=== PATIENT | female | born 1990 | race Caucasian/White ===

== ENCOUNTER 2016-09-01 10:22 | Emergency (ER) | payer OTHER ==
--- NOTE | 2016-09-01 11:57 | ED NURSING NOTES ---
Clinical Report - Nurses [facility] [address] [place] [address] 09/01/2016 10:23 Patient: MARY WHITTINGTON TRIAGE Triage time 1045 AM. Chief Complaint: "FLU", FEVER, COUGH and BODY ACHES and possible H1N1 FLU EXPOSURE. Alert. No acute distress. SEPSIS SCREEN: Sepsis Screen. Negative (no infection suspected/documented). --10:51 Troy Ellison R.N. 10:45 09/01/16. BP: 127/81. HR: 95. RR: 16. O2 saturation: 100%. Temp: 98.9 F. Pain level now 01/08. --10:51 Troy Ellison R.N. Weight: 86.1 kg stated. Height/Length: 65 inches Per Patient. BMI: 31.6. --10:45 Troy Ellison R.N. Medications Antidepressant. --10:47 Troy Ellison R.N. Allergies Latex. --10:48 Troy Ellison R.N. History Arrived by private vehicle, and accompanied by family. Onset. (about 3 weeks). She has had contact with a sick individual. ( patient presents to the ED with flu-like symptoms, patient reports body aches, cough, congestion, post nasal drip, fevers. patient also states that she has been exposed to seasonal flu and H1N1). 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 Took ibuprofen. (Musinex). PAST MEDICAL HX: Negative. Immunizations: up-to-date. Sexual history - sexually active and engages in protected sex. Uses contraception regularly. Denies current . SOCIAL HX: Never smoker. Occasional alcohol use. History of drug use: marijuana. She has had contact with a sick significant other, mother, sister and child with confirmed H1N1 "flu". FALL RISK ASSESSMENT: Fall risk assessment completed. No fall risk identified. NUTRITIONAL RISK ASSESSMENT: The nutritional risk assessment revealed no deficiencies. FUNCTIONAL ASSESSMENT: Functional assessment: no impairments noted. LEARNING NEEDS ASSESSMENT: The learning needs assessment revealed no barriers. SKIN INTEGRITY ASSESSMENT: Skin integrity risk assessment completed. No skin integrity risk identified. --10:51 Troy Ellison R.N. PROBLEMS: Allergies. Depression. --10:48 Troy Ellison R.N. ADDITIONAL SURGERIES: Dilatation & Curettage [2012]. --10:48 Troy Ellison R.N. PHYSICAL ASSESSMENT Ambulatory to room. GENERAL / NEURO / PSYCH: Alert. Oriented X 4. Appears in no acute distress. HEENT: Pupils equal, round and reactive to light. Mucous membranes are pink. RESPIRATORY: Respirations not labored. Cough productive of scant amounts of clear, yellow sputum. Chest nontender. Breath sounds within normal limits. CVS: Normal sinus rhythm noted. Capillary refill less than 2 seconds. Pulses within normal limits. GI / : Abdomen soft and nontender and normal bowel sounds. SKIN: Skin intact. Skin is warm and dry. Normal skin turgor. --10:52 Troy Ellison R.N. DISPOSITION / DISCHARGE Departure time: 1202 PM. Condition at departure: unchanged. The goals identified in the patient's plan of care were met. No learning barriers present. Discharge instructions provided and reviewed with the patient. Reviewed medication(s) side effects, precautions, dosing and course information. Reviewed fever care instructions. Reviewed referral to a primary care physician. Reviewed need for increased fluid intake. Activity restrictions (rest) reviewed. Work note given. Patient verbalized understanding. Written instructions provided in [place]. The patient was discharged home and accompanied by spouse. She left the Emergency Department ambulatory and via private vehicle. Spouse driving. FALL RISK ASSESSMENT: Fall risk assessment completed. No fall risk identified. --12:03 Troy Ellison R.N. 12:02 09/01/16. BP: 102/58. HR: 68. RR: 16. O2 saturation: 100%. Temp: 98.2 F. Pain level now 0/10. --12:03 Troy Ellison R.N. Locked/Released at 09/01/2016 12:04 by Troy Ellison R.N.
--- NOTE | 2016-09-01 11:57 | ED ORDER SUMMARY ---
..... Patient: MARY WHITTINGTON OrderSheet [facility] VisitID: [id number] [place] [address] 26y, F Registration Date/Time: 09/01/2016 ORDER SHEET Weight: 86.1 kg (stated) Allergies: Latex GENERAL ORDERS: Rapid Influenza Screen (Nasal Pharyngeal) (relationship assoc) Urgent (10:55 09/01/2016 Len Barclay per protocol) (Ack 11:12 [place] ER Tech1) (11:35 Len Barclay) MEDICATION ORDERS: IV FLUIDS: ORDER SHEET NOTES: [Electronically signed by Troy Ellison R.N. (12:04 09/01/2016)] [Electronically signed by Mac Cabrera Dr. (12:40 09/01/2016)] [Electronically locked/signed by Troy Ellison R.N. (12:04 09/01/2016)]
--- NOTE | 2016-09-01 11:57 | ED CLINICAL REPORT ---
Clinical Report - Physicians/Mid Levels [facility] [address] [place] [address] 09/01/2016 10:23 Patient: MARY WHITTINGTON Time Seen: 1140; initial patient contact. Arrived- By private vehicle. Historian- patient. HISTORY OF PRESENT ILLNESS Chief Complaint: COUGH, SORE THROAT, FEVER, CHILLS, MUSCLE ACHES and "FLU". This started past 3 weeks and is still present but is improving. It was gradual in onset and has been constant but is not gone now. The illness is described as moderate. The patient has had a cough, a sore throat, nasal congestion and a nasal discharge. No difficulty breathing or chest pain. Additional history - The patient has had contact with a sick individual. (children). Similar symptoms previously: None. Recent medical care: Not recently seen/assessed. REVIEW OF SYSTEMS No headache, diarrhea, abdominal pain or skin rash. She has had nausea. All systems otherwise negative, except as recorded above. PAST HISTORY See nurses notes. Medications: Antidepressant. Allergies: Latex. SOCIAL HISTORY Never smoker. Occasional alcohol use. History of drug use: marijuana. Is a local resident. ADDITIONAL NOTES The nursing notes have been reviewed. PHYSICAL EXAM Vital Signs: 09/01/2016 10:45 BP: 127/81. HR: 95. RR: 16. O2 saturation: 100%. Temp: 98.9 F. Blood pressure normal. Oxygen saturation normal. Appearance: Alert. No acute distress. Eyes: Pupils equal, round and reactive to light. Eyes normal inspection. ENT: Ears normal. Nose normal. Pharynx normal. Uvula midline. Neck: Normal inspection. Mild left anterior neck lymphadenopathy present. Neck supple. No meningeal signs. CVS: Normal heart rate and rhythm. Heart sounds normal. Pulses normal. Respiratory: No respiratory distress. Breath sounds normal. Abdomen: Soft and nontender. No organomegaly. Back: Normal inspection. Skin: Skin warm and dry. Normal skin color. No rash. Normal skin turgor. Extremities: Extremities exhibit normal ROM. No lower extremity edema. Neuro: Oriented X 3. No motor deficit. No sensory deficit. PROGRESS AND PROCEDURES Course of Care: The patient is a pleasant 26-year-old female with no pertinent past medical history presenting for evaluation of symptoms which are consistent with either viral upper respiratory infection or bacterial bronchitis. I discussed with patient in regards to treatment with antibiotics versus conservative management with watchful waiting and symptomatically control. Because patient has been having symptoms for the past 3 weeks, decided upon antibiotic treatment in regards to the bronchitis. Patient is nontoxic and in no acute distress. Do not find any signs of consolidation on auscultation Do not feel chest x-ray would change advisor at this time. Patient is nontoxic and is no acute distress. The patient is septic. Had discussion in regards to patient'sworkup, diagnosis, home care, follow-up, and return precautions. All questions answered. The patient expressed understanding of these instructions and was agreeable to them. the patient appears to be reliable and a good outpatient candidate. Did not fill further emergency department workup is warranted at this time. Did offer the patient needs to be admitted to the hospital. Disposition: Discharged. Condition: good. CLINICAL IMPRESSION 09/01/2016 10:45 BP: 127/81. HR: 95. RR: 16. O2 saturation: 100%. Temp: 98.9 F. Blood pressure normal. Oxygen saturation normal. Acute bacterial bronchitis (prolonged). INSTRUCTIONS Off work today, tomorrow. Warnings: GENERAL WARNINGS: Return or contact your physician immediately if your condition worsens or changes unexpectedly, if not improving as expected, or if other problems arise. Specifically return if pain, vomiting, bleeding, breathing difficulty or fever. Your Current Medications: CONTINUE TAKING THE FOLLOWING MEDICATIONS: Antidepressant*. Prescription Medications: Zithromax Z-Hugo: Take according to package instructions. No refills. Substitution is permissible. Phenergan w/ Codeine 10mg / 6.25mg per 5 mL: take 1 teaspoon every 6 hours as needed for pain or cough. Dispense sixty (60) mL. No refill. Substitution is permissible. OTC Medications: Claritin 10 mg (available over the counter): take 1 tablet orally every 12 hours as needed for congestion. Dispense thirty (30). No refill. Substitution is permissible. Follow-up: Return to the emergency department as needed. Follow up with your doctor in three days. Reason for referral: recheck today's concerns. Summary of care provided to patient via paper. Screening today revealed the patient's blood pressure to be in the normal range. The patient should follow up with a primary care provider for blood pressure management. Understanding of the discharge instructions verbalized by patient. (Electronically signed by Mac Cabrera Dr. 09/01/2016 12:40)
--- NOTE | 2016-09-01 11:57 | ED NURSING NOTES ---
Clinical Report - Nurses [facility] [address] [place] [address] 09/01/2016 10:23 Patient: MARY WHITTINGTON TRIAGE Triage time 1045 AM. Chief Complaint: "FLU", FEVER, COUGH and BODY ACHES and possible H1N1 FLU EXPOSURE. Alert. No acute distress. SEPSIS SCREEN: Sepsis Screen. Negative (no infection suspected/documented). --10:51 Troy Ellison R.N. 10:45 09/01/16. BP: 127/81. HR: 95. RR: 16. O2 saturation: 100%. Temp: 98.9 F. Pain level now 01/08. --10:51 Troy Ellison R.N. Weight: 86.1 kg stated. Height/Length: 65 inches Per Patient. BMI: 31.6. --10:45 Troy Ellison R.N. Medications Antidepressant. --10:47 Troy Ellison R.N. Allergies Latex. --10:48 Troy Ellison R.N. History Arrived by private vehicle, and accompanied by family. Onset. (about 3 weeks). She has had contact with a sick individual. ( patient presents to the ED with flu-like symptoms, patient reports body aches, cough, congestion, post nasal drip, fevers. patient also states that she has been exposed to seasonal flu and H1N1). 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 Took ibuprofen. (Musinex). PAST MEDICAL HX: Negative. Immunizations: up-to-date. Sexual history - sexually active and engages in protected sex. Uses contraception regularly. Denies current . SOCIAL HX: Never smoker. Occasional alcohol use. History of drug use: marijuana. She has had contact with a sick significant other, mother, sister and child with confirmed H1N1 "flu". FALL RISK ASSESSMENT: Fall risk assessment completed. No fall risk identified. NUTRITIONAL RISK ASSESSMENT: The nutritional risk assessment revealed no deficiencies. FUNCTIONAL ASSESSMENT: Functional assessment: no impairments noted. LEARNING NEEDS ASSESSMENT: The learning needs assessment revealed no barriers. SKIN INTEGRITY ASSESSMENT: Skin integrity risk assessment completed. No skin integrity risk identified. --10:51 Troy Ellison R.N. PROBLEMS: Allergies. Depression. --10:48 Troy Ellison R.N. ADDITIONAL SURGERIES: Dilatation & Curettage [2012]. --10:48 Troy Ellison R.N. PHYSICAL ASSESSMENT Ambulatory to room. GENERAL / NEURO / PSYCH: Alert. Oriented X 4. Appears in no acute distress. HEENT: Pupils equal, round and reactive to light. Mucous membranes are pink. RESPIRATORY: Respirations not labored. Cough productive of scant amounts of clear, yellow sputum. Chest nontender. Breath sounds within normal limits. CVS: Normal sinus rhythm noted. Capillary refill less than 2 seconds. Pulses within normal limits. GI / : Abdomen soft and nontender and normal bowel sounds. SKIN: Skin intact. Skin is warm and dry. Normal skin turgor. --10:52 Troy Ellison R.N. DISPOSITION / DISCHARGE Departure time: 1202 PM. Condition at departure: unchanged. The goals identified in the patient's plan of care were met. No learning barriers present. Discharge instructions provided and reviewed with the patient. Reviewed medication(s) side effects, precautions, dosing and course information. Reviewed fever care instructions. Reviewed referral to a primary care physician. Reviewed need for increased fluid intake. Activity restrictions (rest) reviewed. Work note given. Patient verbalized understanding. Written instructions provided in [place]. The patient was discharged home and accompanied by spouse. She left the Emergency Department ambulatory and via private vehicle. Spouse driving. FALL RISK ASSESSMENT: Fall risk assessment completed. No fall risk identified. --12:03 Troy Ellison R.N. 12:02 09/01/16. BP: 102/58. HR: 68. RR: 16. O2 saturation: 100%. Temp: 98.2 F. Pain level now 0/10. --12:03 Troy Ellison R.N. Locked/Released at 09/01/2016 12:04 by Troy Ellison R.N.
--- NOTE | 2016-09-01 11:57 | ED ORDER SUMMARY ---
..... Patient: MARY WHITTINGTON OrderSheet [facility] VisitID: [id number] [place] [address] 26y, F Registration Date/Time: 09/01/2016 ORDER SHEET Weight: 86.1 kg (stated) Allergies: Latex GENERAL ORDERS: Rapid Influenza Screen (Nasal Pharyngeal) (fundraising specialist) Urgent (10:55 09/01/2016 Len Barclay per protocol) (Ack 11:12 [place]ouse ER Tech1) (11:35 Len Barclay) MEDICATION ORDERS: IV FLUIDS: ORDER SHEET NOTES: [Electronically signed by Troy Ellison R.N. (12:04 09/01/2016)] [Electronically signed by Mac Cabrera Dr. (12:40 09/01/2016)] [Electronically locked/signed by Troy Ellison R.N. (12:04 09/01/2016)]
--- NOTE | 2016-09-01 12:41 | ED DISCHARGE INSTRUCTIONS ---
Patient: MARY WHITTINGTON General Instructions [facility] VisitID: [id number] [place] [address] 26y, F Registration Date/Time: 09/01/2016 09/01/2016 10:45 BP: 127/81. HR: 95. RR: 16. O2 saturation: 100%. Temp: 98.9 F. Blood pressure normal. Oxygen saturation normal. Acute bacterial bronchitis (prolonged). INSTRUCTIONS Off work today, tomorrow. Warnings: GENERAL WARNINGS: Return or contact your physician immediately if your condition worsens or changes unexpectedly, if not improving as expected, or if other problems arise. Specifically return if pain, vomiting, bleeding, breathing difficulty or fever. Your Current Medications: CONTINUE TAKING THE FOLLOWING MEDICATIONS: Antidepressant*. Prescription Medications: Zithromax Z-Hugo: Take according to package instructions. No refills. Substitution is permissible. Phenergan w/ Codeine 10mg / 6.25mg per 5 mL: take 1 teaspoon every 6 hours as needed for pain or cough. Dispense sixty (60) mL. No refill. Substitution is permissible. OTC Medications: Claritin 10 mg (available over the counter): take 1 tablet orally every 12 hours as needed for congestion. Dispense thirty (30). No refill. Substitution is permissible. Follow-up: Return to the emergency department as needed. Follow up with your doctor in three days. Reason for referral: recheck today's concerns. Summary of care provided to patient via paper. Screening today revealed the patient's blood pressure to be in the normal range. The patient should follow up with a primary care provider for blood pressure management. Understanding of the discharge instructions verbalized by patient. ADDITIONAL INFORMATION Bronchitis (Adult: Abx Tx) BRONCHITIS is an infection of the air passages (bronchial tubes). It often occurs during the common cold. Symptoms include cough with mucus (phlegm) and low-grade fever. Bronchitis usually lasts 7-14 days. Mild cases can be treated with simple home remedies. More severe infection is treated with an antibiotic. Home Care: If symptoms are severe, rest at home for the first 2-3 days. When you resume activity, don't let yourself get too tired. Do not smoke. Avoid being exposed to the smoke of others. You may use acetaminophen (Tylenol) or ibuprofen (Motrin, Advil) to control fever or pain, unless another medicine was prescribed for this. [NOTE: If you have chronic liver or kidney disease or ever had a stomach ulcer or GI bleeding, talk with your doctor before using these medicines.] Your appetite may be poor, so a light diet is fine. Avoid dehydration by drinking 6-8 glasses of fluids per day (water, soft, drinks, juices, tea, soup, etc.). Extra fluids will help loosen secretions in the lungs. Zoby-tni-bclsyzn cough medicines that containdextromethorphan(such as Robitussin DM) and decongestants (Actifed or Sudafed) may help relieve cough and congestion. [NOTE: Do not use decongestants if you have high blood pressure.] Finish all antibiotic medicine, even if you are feeling better after only a few days. Follow Up with your doctor or as directed if you dont start to feel better after three days. [NOTE: If you are age 65 or older, or if you have chronic asthma or COPD, we recommend a PNEUMOCOCCAL VACCINATION every five years and a yearly INFLUENZAVACCINATION (FLU-SHOT) every . Ask your doctor about this. If you had an X-ray, a radiologist will review it. You will be notified of any new findings that may affect your care.] Get Prompt Medical Attention if any of the following occur: Fever over 100.4F (38.0C) for more than three days Trouble breathing, wheezing or pain with breathing Coughing up blood or increased amounts of colored sputum Weakness, drowsiness, headache, facial pain, ear pain or a stiff neck Azithromycin Oral tablet What is this medicine? AZITHROMYCIN (az ith gardenia MYE sin) is a macrolide antibiotic. It is used to treat or prevent certain kinds of bacterial infections. It will not work for colds, flu, or other viral infections. How should I use this medicine? Take this medicine by mouth with a full glass of water. Follow the directions on the prescription label. The tablets can be taken with food or on an empty stomach. If the medicine upsets your stomach, take it with food. Take your medicine at regular intervals. Do not take your medicine more often than directed. Take all of your medicine as directed even if you think your are better. Do not skip doses or stop your medicine early. Talk to your mix technician regarding the use of this medicine in children. Special care may be needed. What side effects may I notice from receiving this medicine? Side effects that you should report to your doctor or health post acute care nurse as soon as possible: allergic reactions like skin rash, itching or hives, swelling of the face, lips, or tongue confusion, nightmares or hallucinations dark urine difficulty breathing hearing loss irregular heartbeat or chest pain pain or difficulty passing urine redness, blistering, peeling or loosening of the skin, including inside the mouth white patches or sores in the mouth yellowing of the eyes or skin Side effects that usually do not require medical attention (report to your doctor or health post acute care nurse if they continue or are bothersome): diarrhea dizziness, drowsiness headache stomach upset or vomiting tooth discoloration vaginal irritation What may interact with this medicine? Do not take this medicine with any of the following medications: lincomycin This medicine may also interact with the following medications: amiodarone antacids cyclosporine digoxin magnesium nelfinavir phenytoin warfarin What if I miss a dose? If you miss a dose, take it as soon as you can. If it is almost time for your next dose, take only that dose. Do not take double or extra doses. Where should I keep my medicine? Keep out of the reach of children. Store at room temperature between 15 and 30 degrees C (59 and 86 degrees F). Throw away any unused medicine after the expiration date. What should I tell my health care provider before I take this medicine? They need to know if you have any of these conditions: kidney disease liver disease irregular heartbeat or heart disease an unusual or allergic reaction to azithromycin, erythromycin, other macrolide antibiotics, foods, dyes, or preservatives or trying to get breast-feeding What should I watch for while using this medicine? Tell your doctor or health post acute care nurse if your symptoms do not improve. Do not treat diarrhea with over the counter products. Contact your doctor if you have diarrhea that lasts more than 2 days or if it is severe and watery. This medicine can make you more sensitive to the sun. Keep out of the sun. If you cannot avoid being in the sun, wear protective clothing and use sunscreen. Do not use sun lamps or tanning beds/booths. Loratadine Oral tablet, extended release 24 hour What is this medicine? LORATADINE (asia AT a nikunj) is an antihistamine. It helps to relieve sneezing, runny nose, and itchy, watery eyes. This medicine is used to treat the symptoms of allergies. It is also used to treat itchy skin rash and hives. How should I use this medicine? Take this medicine by mouth with a glass of water. Follow the directions on the label. You may take this medicine with food or on an empty stomach. Take your medicine at regular intervals. Do not take your medicine more often than directed. Talk to your mix technician regarding the use of this medicine in children. While this medicine may be used in children as young as 6 years for selected conditions, precautions do apply. What side effects may I notice from receiving this medicine? Side effects that you should report to your doctor or health post acute care nurse as soon as possible: allergic reactions like skin rash, itching or hives, swelling of the face, lips, or tongue breathing problems unusually restless or nervous Side effects that usually do not require medical attention (report to your doctor or health post acute care nurse if they continue or are bothersome): drowsiness dry or irritated mouth or throat headache What may interact with this medicine? other medicines for colds or allergies What if I miss a dose? If you miss a dose, take it as soon as you can. If it is almost time for your next dose, take only that dose. Do not take double or extra doses. Where should I keep my medicine? Keep out of the reach of children. Store at room temperature between 2 and 30 degrees C (36 and 86 degrees F). Protect from moisture. Throw away any unused medicine after the expiration date. What should I tell my health care provider before I take this medicine? They need to know if you have any of these conditions: asthma kidney disease liver disease an unusual or allergic reaction to loratadine, other antihistamines, other medicines, foods, dyes, or preservatives or trying to get breast-feeding What should I watch for while using this medicine? Tell your doctor or healthcare professional if your symptoms do not start to get better or if they get worse. Your mouth may get dry. Chewing sugarless gum or sucking hard candy, and drinking plenty of water may help. Contact your doctor if the problem does not go away or is severe. You may get drowsy or dizzy. Do not drive, use machinery, or do anything that needs mental alertness until you know how this medicine affects you. Do not stand or sit up quickly, especially if you are an older patient. This reduces the risk of dizzy or fainting spells. You have been given the following additional information: Bronchitis, Antiobiotic Treatment (Adult) Azithromycin Oral tablet Loratadine Oral tablet, extended release 24 hour Off work today, tomorrow. (Electronically signed by Mac Cabrera Dr. 09/01/2016 12:40)
--- NOTE | 2016-09-01 12:41 | ED MED RECONCILIATION SUMMARY ---
Patient: MARY WHITTINGTON Medication Reconciliation Report [facility] VisitID: [id number] [place] [address] 26y, F Registration Date/Time: 09/01/2016 Weight: 86.1 kg Height/Length: 65 in. BMI: 31.6 ALLERGIES: Latex The patient's Home Medications are listed below: CONTINUE TAKING THE FOLLOWING MEDICATIONS: Antidepressant The source(s) of the original Home Medication information: Not obtained. The following Medications were given to the patient in the Emergency Department: None. The following Medications were prescribed to the patient: Claritin 10 mg (available over the counter): take 1 tablet orally every 12 hours as needed for congestion. Dispense thirty (30). No refill. Substitution is permissible. -- Mac Cabrera Dr. Zithromax Z-Hugo: Take according to package instructions. No refills. Substitution is permissible. -- Mac Cabrera Dr. Phenergan w/ Codeine 10mg / 6.25mg per 5 mL: take 1 teaspoon every 6 hours as needed for pain or cough. Dispense sixty (60) mL. No refill. Substitution is permissible. -- Mac Cabrera Dr.
--- NOTE | 2016-09-01 12:41 | ED MED RECONCILIATION SUMMARY ---
Patient: MARY WHITTINGTON Medication Reconciliation Report [facility] VisitID: [id number] [place] [address] 26y, F Registration Date/Time: 09/01/2016 Weight: 86.1 kg Height/Length: 65 in. BMI: 31.6 ALLERGIES: Latex The patient's Home Medications are listed below: CONTINUE TAKING THE FOLLOWING MEDICATIONS: Antidepressant The source(s) of the original Home Medication information: Not obtained. The following Medications were given to the patient in the Emergency Department: None. The following Medications were prescribed to the patient: Claritin 10 mg (available over the counter): take 1 tablet orally every 12 hours as needed for congestion. Dispense thirty (30). No refill. Substitution is permissible. -- Mac Cabrera Dr. Zithromax Z-Hugo: Take according to package instructions. No refills. Substitution is permissible. -- Mac Cabrera Dr. Phenergan w/ Codeine 10mg / 6.25mg per 5 mL: take 1 teaspoon every 6 hours as needed for pain or cough. Dispense sixty (60) mL. No refill. Substitution is permissible. -- Mac Cabrera Dr.
--- NOTE | 2016-09-01 12:41 | ED MAR SUMMARY ---
..... Medication Administration Record [facility] [address] [place], [place] [id number] Patient: MARY WHITTINGTON Visit ID: [id number] 26y, F Weight: 86.1 kg Height/Length: 65 in BMI: 31.6 ALLERGIES: Latex
--- NOTE | 2016-09-01 12:41 | ED MAR SUMMARY ---
..... Medication Administration Record [facility] [address] [place], [place] [id number] Patient: MARY WHITTINGTON Visit ID: [id number] 26y, F Weight: 86.1 kg Height/Length: 65 in BMI: 31.6 ALLERGIES: Latex
== END 2016-09-01 12:02 | disposition home or self-care (01) ==
LOC: ED SRH 10:22
DX: J20.8 Acute bronchitis due to other specified organisms (principal); Z79.899 Other long term (current) drug therapy; Z91.040 Latex allergy status
CPT/HCPCS: 91400